=== PATIENT | male | born 1940 | race Caucasian/White ===

== ENCOUNTER 2025-04-29 13:30 | Observation (INO) ==
--- NOTE | 2025-04-29 14:12 | Emergency Department Note ---
Impression & Plan Vomiting, Pre-syncope, DM2 (diabetes mellitus, type 2) ED Provider Note NAME: FLIP MONZON AGE: 84 SEX: M : 1940 ARRIVES VIA: Ambulance INFORMANT: Patient, ED PROVIDER(S): Paul Ontiveros MD CHIEF COMPLAINT: Vomiting, possible choking episode MEDICAL DECISION MAKING: Patient presents due to concern for patient with a normal white count hemoglobin of 13.4 with a normal platelet count. The patient's kidney function unremarkable. Patient's chest x-ray does not show any acute concerning findings at this time. Multiple episodes of vomiting. IV was established and blood work was obtained along with a chest x-ray. Currently clear lung sounds and currently asymptomatic. Patient ordered IV fluids and IV Zofran. Patient's blood work shows a normal white count virtually normal hemoglobin at 13.4 with a normal platelet count. Kidney function unremarkable. Slightly elevated anion gap but did receive IV fluids. BSG 182. Patient's x-ray is unremarkable. Clear lung sounds. I did discuss the findings with the patient the patient's at bedside. They were comfortable with going home. They were set up and I did speak with case management to help with discharge transportation. Prior to the patient being discharged the patient vomited 2 or 3 times primarily clear liquid was pale and diaphoretic. I was concerned that if he returned back to his care facility he would have recurrence of symptoms and be sent back. Patient was ordered IV fluids IV Zofran and IV Pepcid and repeat EKG was obtained. Repeat EKG is unchanged from prior. Given the patient's persistent symptoms I did speak the on-call hospital service Dr. Rubio and the patient was admitted to the medicine service. Discussion w/ other healthcare providers: Dr. Rubio inpatient medicine service Prior /Outside records reviewed: None Differential diagnosis: Gastroenteritis, food borne illness, infection, appendicitis, diverticulitis, inflammatory bowel disease, obstruction among others were considered. Diagnostics, as interpreted by me: ECG: Normal sinus rhythm, rate of 62, normal intervals, left axis deviation no obvious STEMI. Repeat EKG interpreted by myself Normal sinus rhythm, rate of 73, normal CA QRS, QTc prolonged, left axis deviation. No obvious STEMI. Cardiac monitoring: An order was placed for continuous cardiac monitoring. The monitor shows a rate of 75 with sinus rhythm. Patient was placed on pulse oximetry Medical decision rules: None Imaging studies: I informally interpreted the patient's chest x-ray does not show obvious pneumothorax with formal report to follow. HPI: Patient presents due to concern for feeling generally unwell. does provide some of the story as he does have a history of dementia. Presenting from [facility]. His states that he looked at her and said "I think I am in trouble." He subsequently had multiple episodes of vomiting. No reported LOC. The patient does not remember the event but not necessarily atypical per at bedside given his dementia. He was referred here. Patient denies any current chest pain shortness of breath nausea vomiting. Patient does believe that he is essentially at his baseline. No reported falls or trauma. Was concerned via EMS staff report to nursing that the patient may have been choking on his food and aspirated. PAST MEDICAL HISTORY: See Below PAST SURGICAL HISTORY: See Below SOCIAL HISTORY: See Below HOME MEDICATIONS: See Below ALLERGIES: See Below VITALS: See Below PHYSICAL EXAMINATION: GENERAL: NAD, non-toxic. EYE EXAM: Normal conjunctiva. PERRL, no anisocoria and EOM's grossly intact w/o pain. OROPHARYNX: Moist mucus membranes, grossly normal dentition. NECK: Trachea midline, no stridor. LUNGS: Clear to auscultation. Normal chest wall mechanics. HEART: NSR, no MRG. ABDOMEN: Abdomen soft, non-tender, no masses, no rebound or guarding. BACK: No CVA TTP. SKIN: No rashes and no bruising. UPPER EXTREMITIES: Upper extremities are grossly normal. LOWER EXTREMITIES: Grossly normal, no edema. NEURO EXAM: Awake and alert, follows commands, no obvious facial asymmetry, normal speech, moves all 4 extremities. Oriented to person as well as in the room. Does not remember her birthdate. Past Med/Surg History Problem List Prolonged QT interval Pre-syncope (Acute) Vomiting (Acute) Severe cognitive impairment Depressed affect Mood changes Carpal tunnel syndrome, left Numbness of left hand Physical deconditioning Cognitive changes Hearing decreased Urinary frequency Encounter for pre-operative examination Elevated prostate specific antigen (PSA) BPH with obstruction/lower urinary tract symptoms Medical History Diabetes mellitus, type 2 Hyperlipidemia Atrial fibrillation ?? 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 Currently on Xarelto History of COVID-19 09/2021 - asymptomatic - [place] History of anesthesia reaction pt vomited while under anesthesia and aspirated. Surgical History Hx of cataract extraction lt. History of esophagogastroduodenoscopy (EGD) History of colonoscopy Hx of tonsillectomy Hx of wisdom tooth extraction Hx of inguinal hernia repair unsure side History of loop recorder d/t a. fib - in place for approx. 2 years. removed ~10 years ago. 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 Beliefs That Will Affect Care: None Current Living Situation: Spouse Feels Safe at Home: Yes Assistive Devices: Glasses Allergies Allergies Allergy/AdvReac Type Severity Reaction Status Date / Time No Known Allergies Allergy Verified 02/03/25 09:07 Home Meds Home Medications Medication Instructions Recorded Confirmed atorvastatin 40 mg tablet 40 mg PO HS 06/08/22 04/29/25 dutasteride 0.5 mg capsule 0.5 mg PO QAM 06/08/22 04/29/25 (Avodart) rivaroxaban 20 mg tablet (Xarelto) 20 mg PO QPM 06/08/22 04/29/25 fluticasone propionate 110 2 puff inhalation BID 04/29/25 04/29/25 mcg/actuation HFA aerosol inhaler metformin 1,000 mg tablet 1,000 mg PO BID 04/29/25 04/29/25 Previous Rx's Medication Instructions Recorded terazosin 10 mg capsule 10 mg PO QAM #90 caps 04/15/24 donepezil 10 mg tablet 10 mg PO DAILY #30 tabs 03/24/25 memantine 10 mg tablet 10 mg PO BID 30 days #60 tabs 03/24/25 Results & Data (ED) Vital Signs Vital Signs - 24 hr 04/29/25 13:25 04/29/25 13:25 04/29/25 13:25 Temperature 36.8 C Temperature Source Oral Pulse Rate 55 L Pulse Rate [Right Brachial] 55 L Pulse Rate from SpO2 Sensor Pulse Rhythm Regular Pulse Rhythm [Right Brachial] Regular Pulse Strength Normal Pulse Strength [Right Brachial] Normal Respiratory Rate 18 18 Respiratory Effort / Characteristics Non-Labored Non-Labored Respiratory Depth Normal Normal Respiratory Pattern Regular Regular Blood Pressure 110/57 L Blood Pressure [Right Arm] 110/57 L Blood Pressure Mean 74 Blood Pressure Mean [Right Arm] 74 Blood Pressure Position Lying Blood Pressure Position [Right Arm] Lying Pulse Oximetry 95 95 Oxygen Delivery Method Room Air Room Air Room Air Sepsis Recent Fever Within 48 Hours No Sepsis New/Unexplained Change in Mental Status N/A Sepsis Action Taken by Nursing No Action Required 04/29/25 13:45 04/29/25 14:19 04/29/25 15:15 Temperature Temperature Source Pulse Rate 65 67 Pulse Rate [Right Brachial] Pulse Rate from SpO2 Sensor 69 Pulse Rhythm Pulse Rhythm [Right Brachial] Pulse Strength Pulse Strength [Right Brachial] Respiratory Rate 15 Respiratory Effort / Characteristics Respiratory Depth Respiratory Pattern Blood Pressure 112/59 L Blood Pressure [Right Arm] Blood Pressure Mean 76 Blood Pressure Mean [Right Arm] Blood Pressure Position Blood Pressure Position [Right Arm] Pulse Oximetry 97 93 Oxygen Delivery Method Room Air Sepsis Recent Fever Within 48 Hours Sepsis New/Unexplained Change in Mental Status Sepsis Action Taken by Nursing 04/29/25 15:29 04/29/25 17:00 04/29/25 19:00 Temperature Temperature Source Pulse Rate 68 Pulse Rate [Right Brachial] 69 75 Pulse Rate from SpO2 Sensor Pulse Rhythm Pulse Rhythm [Right Brachial] Regular Regular Pulse Strength Pulse Strength [Right Brachial] Normal Normal Respiratory Rate 16 19 20 Respiratory Effort / Characteristics Non-Labored Non-Labored Respiratory Depth Normal Normal Respiratory Pattern Regular Regular Blood Pressure 117/66 Blood Pressure [Right Arm] 115/89 117/66 Blood Pressure Mean 83 Blood Pressure Mean [Right Arm] 97 83 Blood Pressure Position Blood Pressure Position [Right Arm] Lying Lying Pulse Oximetry 94 94 95 Oxygen Delivery Method Room Air Room Air Sepsis Recent Fever Within 48 Hours Sepsis New/Unexplained Change in Mental Status Sepsis Action Taken by Nursing 04/29/25 20:03 Temperature Temperature Source Pulse Rate 71 Pulse Rate [Right Brachial] Pulse Rate from SpO2 Sensor Pulse Rhythm Pulse Rhythm [Right Brachial] Pulse Strength Pulse Strength [Right Brachial] Respiratory Rate 18 Respiratory Effort / Characteristics Respiratory Depth Respiratory Pattern Blood Pressure 128/60 Blood Pressure [Right Arm] Blood Pressure Mean 82 Blood Pressure Mean [Right Arm] Blood Pressure Position Blood Pressure Position [Right Arm] Pulse Oximetry 96 Oxygen Delivery Method Sepsis Recent Fever Within 48 Hours Sepsis New/Unexplained Change in Mental Status Sepsis Action Taken by Shelter Medications Current Medication List: was personally reviewed by me Laboratory Data Attestation: I reviewed the patient's lab results. 04/29/25 13:37 04/29/25 13:37 Lab Results 04/29/25 Range/Units 13:37 WBC 5.13 (4.8-10.8) K/ul RBC 4.43 L (4.70-6.10) M/uL Hgb 13.4 L (14.0-18.0) g/dl Hct 39.9 L (42.0-52.0) % MCV 90.1 (80.0-100.0) fL MCH 30.2 (25.0-34.0) pg MCHC 33.6 (32.0-36.0) g/dL RDW Std Deviation 44.0 (36.4-46.3) fL RDW Coeff of [place] 13.2 (11.5-14.5) % Plt Count 176 (130-400) K/uL MPV 10.7 (9.4-12.4) fL Immature Gran % (Auto) 0.4 % Neut % (Auto) 63.3 % Lymph % (Auto) 24.8 % [place] % (Auto) 7.4 % Eos % (Auto) 3.3 % Baso % (Auto) 0.8 % Neut # (Auto) 3.25 (1.40-6.50) K/uL Lymph # (Auto) 1.27 (1.20-3.40) K/uL [place] # (Auto) 0.38 (0.11-0.59) K/uL Eos # (Auto) 0.17 (0.00-0.50) K/uL Baso # (Auto) 0.04 (0.00-0.20) K/uL Immature Gran # (Auto) 0.02 (0.01-0.20) K/uL Sodium 139 (136-145) mmol/L Potassium 4.0 (3.5-5.1) mmol/L Chloride 106 (98-107) mmol/L Carbon Dioxide 21 (21-32) mmol/L Anion Gap 12 H (3-11) BUN 17 (6-23) mg/dl Creatinine 1.10 (0.6-1.4) mg/dl Est Cr Clr Drug Dosing 51.8 ml/min eGFR 67.02 BUN/Creatinine Ratio 15.5 (10-20) Glucose 182 H (70-99(Fasting)) mg/dl Calcium 8.9 (8.6-10.3) mg/dl Total Bilirubin 0.8 (0.2-1.0) mg/dl AST 14 (13-39) U/L ALT 9 (7-52) U/L Alkaline Phosphatase 61 (34-104) U/L Troponin I High Sens 3.3 (0-20) pg/ml Total Protein 6.1 (6.0-8.3) gm/dl Albumin 3.8 (3.4-5.0) gm/dl Globulin 2.3 L (2.5-4.0) gm/dl Albumin/Globulin Ratio 1.7 (0.9-2) Lipase 43 (11-82) U/L Administered Medications Discontinued Medications Sodium Chloride (Nss) 500 mls @ 999 mls/hr IV .Q31M ANGUS Stop: 04/29/25 15:00 Last Infusion: 04/29/25 14:59 Dose: Infused Documented By: Admin: 04/29/25 14:28 Dose: 999 mls/hr Documented By: JOHNNY Sodium Chloride (Nss) 1,000 mls @ 999 mls/hr IV .Q1H1M ONE Stop: 04/29/25 19:46 Last Admin: 04/29/25 19:12 Dose: 999 mls/hr Documented By: JOHNNY Famotidine (Pepcid 20mg Iv Push) 20 mg in 5 mls @ 2.5 mls/min IV NOW STA Stop: 04/29/25 18:47 Last Admin: 04/29/25 19:20 Dose: 2.5 mls/min Documented By: GADIEL Ondansetron HCl (Ondansetron Inj 2 Mg/Ml 2 Ml Vial) 4 mg IV NOW STA Stop: 04/29/25 14:19 Last Admin: 04/29/25 14:28 Dose: 4 mg Documented By: JOHNNY Ondansetron HCl (Ondansetron Inj 2 Mg/Ml 2 Ml Vial) Confirm Administered Dose 4 mg .ROUTE .STK-MED ONE Stop: 04/29/25 18:48 Last Admin: 04/29/25 19:12 Dose: Not Given Documented By: JOHNNY Ondansetron HCl (Ondansetron Inj 2 Mg/Ml 2 Ml Vial) 4 mg IV NOW STA Stop: 04/29/25 18:47 Last Admin: 04/29/25 19:12 Dose: 4 mg Documented By: JOHNNY Imaging Data Radiologist's Impression: Chest X-Ray 04/29/25 14:18 XR chest 1V portable CLINICAL HISTORY: vomiting, ?aspiration COMPARISON STUDY: Chest radiograph May 01, 2024. FINDINGS: Lung volumes are normal. Lungs are clear. There is no pneumothorax or pleural effusion. Mild cardiomegaly is unchanged. Mediastinal contours are normal. There is no evidence for pulmonary edema. IMPRESSION: No acute cardiopulmonary findings. No significant change in appearance of the chest. ACT 112: Negative or not required by law. Electronically signed by: Mario Atkinson M.D. 04/29/2025 2:50 PM Discharge Plan Visit Data Chief Complaint: Shortness of Breath/Dyspnea Stated Complaint: AMS, SOB, HYPOTENSIVE ED Provider: Paul Ontiveros Discharge Problem: Vomiting, Pre-syncope, DM2 (diabetes mellitus, type 2) Patient Disposition: Admitted As Inpatient Condition: Good Discharge Instructions Interventions: ED Discharge Assessment Last Done: 04/29/25 17:54 Prescriptions Prescriptions: No Action terazosin 10 mg capsule 10 mg PO QAM Qty: 90 1RF memantine 10 mg tablet 10 mg PO BID 30 Days Qty: 60 3RF donepezil 10 mg tablet 10 mg PO DAILY Qty: 30 5RF atorvastatin 40 mg Tablet 40 mg PO HS Xarelto 20 mg Tablet 20 mg PO QPM dutasteride [Avodart] 0.5 mg capsule 0.5 mg PO QAM metformin 1,000 mg Tablet 1,000 mg PO BID fluticasone propionate [Flovent HFA] 110 mcg/actuation Hfa Aerosol Inhaler 2 puff INHALATION BID Referrals Referrals: Marley Jacqueline,Rachelle A, DO [Primary Care Provider] - Discharge Problem: Vomiting Qualifiers: Vomiting type: unspecified Nausea presence: unspecified Qualified Code(s): R 11.10 - Vomiting, unspecified DM2 (diabetes mellitus, type 2) Qualifiers: Diabetes mellitus regional intermodal truck driver insulin use: unspecified fpc insulin use status
[2025-04-29] MEDS: SODIUM CHLORIDE 0.9% 500 ML IV SCH (14:28)
[2025-04-29] MEDS: ONDANSETRON INJ 2 MG/ML 2 ML VIAL IV STA ×2 (14:28→19:12)
[2025-04-29 14:37] LABS: Hematocrit (blood only) 39.9 % (42.0-52.0); Hemoglobin 13.4 g/dl (14.0-18.0); Immature Granulocytes # (auto) 0.02 K/uL (0.01-0.20); Immature Granulocytes % (auto) 0.4 %; Mean Corpuscular Hemoglobin 30.2 pg (25.0-34.0); Mean Corpuscular Volume 90.1 fL (80.0-100.0); Platelet Count 176 K/uL (130-400); RDW Standard Deviation 44.0 fL (36.4-46.3); Red Blood Count 4.43 M/uL (4.70-6.10); White Blood Count 5.13 K/ul (4.8-10.8)
--- NOTE | 2025-04-29 14:52 | XRay Report ---
XR chest 1V portable CLINICAL HISTORY: vomiting, ?aspiration COMPARISON STUDY: Chest radiograph May 01, 2024. FINDINGS: Lung volumes are normal. Lungs are clear. There is no pneumothorax or pleural effusion. Mil d cardiomegaly is unchanged. Mediastinal contours are normal. There is no evidence for pulmonary tyler a. IMPRESSION: No acute cardiopulmonary findings. No significant change in appearance of the chest. ACT 112: Negative or not required by law. Electronically signed by: Mario Atkinson M.D. 04/29/2025 2:50 PM
[2025-04-29 15:47] LABS: Anion Gap 12.0 (3-11); Bilirubin,Total 0.8 mg/dl (0.2-1.0); Calcium 8.9 mg/dl (8.6-10.3); Carbon Dioxide 21.0 mmol/L (21-32); Chloride 106.0 mmol/L (98-107); Potassium 4.0 mmol/L (3.5-5.1); Sodium 139.0 mmol/L (136-145)
[2025-04-29 15:54] LABS: Alanine Aminotransferase 9.0 U/L (7-52); Albumin Globulin Ratio 1.7 (0.9-2); Alkaline Phosphatase 61.0 U/L (34-104); Blood Urea Nitrogen 17.0 mg/dl (6-23); Creatinine Clr Calc Pharmacy 51.8 ml/min; Globulin 2.3 gm/dl (2.5-4.0); Glucose 182.0 mg/dl (70-99(Fasting)); Lipase 43.0 U/L (11-82); Total Protein 6.1 gm/dl (6.0-8.3)
--- NOTE | 2025-04-29 18:45 | Electrocardiogram Report ---
Test Reason : Blood Pressure : */* mmHG Vent. Rate : 62 BPM Atrial Rate : 62 BPM P-R Int : 154 ms QRS Dur : 102 ms QT Int : 450 ms P-R-T Axes : 86 -63 72 degrees QTcB Int : 456 ms Normal sinus rhythm Incomplete right bundle branch block Left anterior fascicular block Possible Lateral infarct , age undetermined Abnormal ECG When compared with ECG of 01-May-2024 11:22, Left anterior fascicular block is now Present Incomplete right bundle branch block is now Present Borderline criteria for Lateral infarct are now Present Confirmed by Jorge Browning ([id number]) on 04/29/2025 6:44:52 PM Referred By: [facility] Confirmed By: Jorge Browning
[2025-04-29] MEDS: SODIUM CHLORIDE 0.9% 1,000 ML IV ONE (19:12)
[2025-04-29] MEDS: ONDANSETRON INJ 2 MG/ML 2 ML VIAL ONE (19:12)
[2025-04-29] MEDS: FAMOTIDINE 20MG IV PUSH 20 MG/5 ML SYR IV STA (19:20)
--- NOTE | 2025-04-29 19:41 | History & Physical Report ---
Date of Service April 29, 2025 Assessment & Plan (1) Pre-syncope: (2) Vomiting: (3) Prolonged QT interval: (4) Diabetes mellitus, type 2: Plan 85-year-old male PMHx, impairment, BPH, asthmatic bronchitis, HLD, and T2DM presenting for reported choking episode as well as dizziness on the day of arrival. Per EMS, patient was hypotensive on arrival (88/50). ED evaluation reveals CBC without leukocytosis, H&H 13.4/39.9; CMP anion gap 12, glucose 182; troponin 3.3, globulin 2.3; lipase 43; CXR without acute findings; EKG (1) NSR, incomplete RBBB, LAFB at 62 bpm.; EKG (2) sinus arrhythmia, LAFB, abnormal QRS/T, prolonged QT at 70 bpm.; 1.5 mL NSS, Zofran 4 mg IV x 3, and famotidine 20 mg IV in ED. #Presyncope/Vomiting Episode of vomiting x 5-[address], then with ? aspiration event. Was to be sent home from ED but when up to bathroom, had another episode of vomiting and presyncope. Suspect volume depletion resulting in symptoms. - CBC without leukocytosis, H/H 13.4/39.9; CMP without electrolyte abnormalities - CBC, BMP am - CXR WNL - EKG x 2 with NSR, 2nd EKG does reveal prolonged QT/QTc (438/482) - Clear liquid diet, advance as patient tolerates - Aspiration + fall precautions - Reglan prn N/V - IVF LR @ 80 mL/hr - Abx deferred at time of admission - No F/C, no leukocytosis, no abdominal pain #Prolonged QT on EKG No palpitations, no additional symptoms. - Avoid prolonging agents as possible - Reglan for N/V - Monitor on tele #T2DM H/o DMT2; On metformin at home. - Admitting glucose 182; A1c pending for am - Hold po meds - SSI with target BSG range 110-140mg/dL, CF 30, carb ratio deferred - BSG ACHS - Adjust regimen as needed #HLD- Atorvastatin - continue #Cognitive impairment/dementia- Donepezil, memantine - continue #Afib- EKG NSR x 2; Xeralto - continue #BPH- Dutasteride, terazosin - continue Dispo: Obs, med/tele VTE Prophylaxis: Xeralto This document was dictated utilizing [employer]. Please excuse any grammatical errors that may be secondary to use of this software. Admission and Anticipated Discharge Date Admission Date: 04/29/2025 History of Present Illness Chief Complaint: Dizziness, N/V Primary Care Provider: Rachelle Phillips DO 85-year-old male PMHx, impairment, BPH, asthmatic bronchitis, HLD, and T2DM presenting for reported choking episode as well as dizziness on the day of arrival. Per EMS, patient was hypotensive on arrival (88/50). Patient and his helped to provide a history. States that on the day of arrival he was eating "very well" across from his at the dinner table in the main dining room at the place of residence. And then he said suddenly he was not eating well anymore and he was on the floor. His states that she witnessed the entire event. States that he started to have some coughing at the dinner table and then stated "I think I am in trouble." At that time he fell to the ground from his seat and started to throw up around 6-7 times. He denies any feelings prior to this event and does not remember stating that he is in trouble. He did not have any presyncope, dizziness, lightheadedness, palpitations, or abdominal pain. He states that he feels back to his normal health this time. Patient was to be discharged home, but when he got up to use the bathroom and got off of the toilet, his found him on the ground in his hospital room. He felt lightheaded at that time, but reports no LOC during either episode that occurred on the day of arrival. Patient does not feel feverish, but states that he feels that his body may be shaking. He did receive multiple doses of Zofran. He denies chest pain, SOB, palpitations, abdominal pain, diarrhea/constipation, numbness/tingling, LUTS, URI symptoms, weakness, or recurrent dizziness. He has not had this happen before. He takes medications as prescribed. Patient's mood changes throughout the visit, states that he will remember my name because his "favorite granddaughter's name is Vickie." Patient states that his mood is overall stable. ED evaluation reveals CBC without leukocytosis, H&H 13.4/39.9; CMP anion gap 12, glucose 182; troponin 3.3, globulin 2.3; lipase 43; CXR without acute findings; EKG (1) NSR, incomplete RBBB, LAFB at 62 bpm.; EKG (2) sinus arrhythmia, LAFB, abnormal QRS/T, prolonged QT at 70 bpm.; 1.5 mL NSS, Zofran 4 mg IV x 3, and famotidine 20 mg IV in ED. Please see Dr. Rubio's attestation for adjustments/additions to treatment plan. Allergies Allergy/AdvReac Type Severity Reaction Status Date / Time No Known Allergies Allergy Verified 02/03/25 09:07 Home Medications Medication Instructions Recorded Confirmed Type atorvastatin 40 mg tablet 40 mg PO HS 06/08/22 04/29/25 History dutasteride 0.5 mg capsule 0.5 mg PO QAM 06/08/22 04/29/25 History (Avodart) rivaroxaban 20 mg tablet (Xarelto) 20 mg PO QPM 06/08/22 04/29/25 History terazosin 10 mg capsule 10 mg PO QAM #90 caps 04/15/24 04/29/25 Rx donepezil 10 mg tablet 10 mg PO DAILY #30 tabs 03/24/25 04/29/25 Rx memantine 10 mg tablet 10 mg PO BID 30 days #60 tabs 03/24/25 04/29/25 Rx fluticasone propionate 110 2 puff inhalation BID 04/29/25 04/29/25 History mcg/actuation HFA aerosol inhaler metformin 1,000 mg tablet 1,000 mg PO BID 04/29/25 04/29/25 History Past Med/Surg History Problem List Prolonged QT interval Pre-syncope (Acute) Vomiting (Acute) Severe cognitive impairment Depressed affect Mood changes Carpal tunnel syndrome, left Numbness of left hand Physical deconditioning Cognitive changes Hearing decreased Urinary frequency Encounter for pre-operative examination Elevated prostate specific antigen (PSA) BPH with obstruction/lower urinary tract symptoms Medical History Diabetes mellitus, type 2 Hyperlipidemia Atrial fibrillation ?? unsure - pt does not follow head packager. Currently on Xarelto History of COVID-19 09/2021 - asymptomatic - [facility] History of anesthesia reaction pt vomited while under anesthesia and aspirated. Surgical History Hx of cataract extraction lt. History of esophagogastroduodenoscopy (EGD) History of colonoscopy Hx of tonsillectomy Hx of wisdom tooth extraction Hx of inguinal hernia repair unsure side History of loop recorder d/t a. fib - in place for approx. 2 years. removed ~10 years ago. Does not follow head packager History of bilateral knee arthroplasty Family History Mother Diabetes Father Diabetes Social History Smoking Status: Former smoker Cigarettes Per Day: 1 pk/day; Second Hand Exposure: No; Do You Dip or Chew Tobacco: No; Hx Alcohol Use: Yes Alcohol type: wine and hard liquor Hx Substance Use: No Preferred Language: Italian Communication Ability: Effective Javascript Developer Required: No Beliefs That Will Affect Care: None Current Living Situation: Spouse Feels Safe at Home: Yes Assistive Devices: Glasses Review of Systems Review of Systems: All systems reviewed & are unremarkable except as noted in Subjective Physical Exam Physical Exam: General: No acute distress Skin: Warm and dry Head: Normocephalic, atraumatic Eyes: PERRL, conjunctivae clear, sclera non-icteric ENT: External ear and ear canal without swelling; nose atraumatic; good dentition, tongue normal appearance, pharynx normal Neck: Supple, no LAD Cardio: RRR, no M/G/R, S1 and S2 normal Resp: No respiratory distress, Lungs CTA in all lobes bilaterally, no wheezes, rales, or rhonchi Abdomen: Soft, symmetric, nontender; No masses or hepatosplenomegaly; Bowel sounds normoactive MSK: No deformities; pulses palpable and equal; no edema. Neuro: Awake, alert; Sensation intact bilaterally; CN grossly intact Psych: Appropriate mood and affect; good judgement and insight. present in room at time of visit. Results & Data Results & Data Vital Signs (Past 12 Hours) Vital Signs Temp Pulse Pulse Resp BP BP Pulse Ox 04/29/25 19:00 68 20 117/66 95 04/29/25 17:00 75 19 117/66 94 04/29/25 15:29 69 16 115/89 94 04/29/25 15:15 67 15 112/59 L 93 04/29/25 14:19 97 04/29/25 13:45 65 04/29/25 13:25 55 L 18 110/57 L 95 04/29/25 13:25 04/29/25 13:25 36.8 C 55 L 18 110/57 L 95 O2 Del Method 04/29/25 19:00 04/29/25 17:00 Room Air 04/29/25 15:29 Room Air 04/29/25 15:15 04/29/25 14:19 Room Air 04/29/25 13:45 04/29/25 13:25 Room Air 04/29/25 13:25 Room Air 04/29/25 13:25 Room Air Laboratory Results 04/29/25 13:37 WBC 5.13 RBC 4.43 L Hgb 13.4 L Hct 39.9 L MCV 90.1 MCH 30.2 MCHC 33.6 RDW Std Deviation 44.0 RDW Coeff of Rosendo 13.2 Plt Count 176 MPV 10.7 Immature Gran % (Auto) 0.4 Neut % (Auto) 63.3 Lymph % (Auto) 24.8 Dukes % (Auto) 7.4 Eos % (Auto) 3.3 Baso % (Auto) 0.8 Neut # (Auto) 3.25 Lymph # (Auto) 1.27 Dukes # (Auto) 0.38 Eos # (Auto) 0.17 Baso # (Auto) 0.04 Immature Gran # (Auto) 0.02 Sodium 139 Potassium 4.0 Chloride 106 Carbon Dioxide 21 Anion Gap 12 H BUN 17 Creatinine 1.10 Est Cr Clr Drug Dosing 51.8 eGFR 67.02 BUN/Creatinine Ratio 15.5 Glucose 182 H Calcium 8.9 Total Bilirubin 0.8 AST 14 ALT 9 Alkaline Phosphatase 61 Troponin I High Sens 3.3 Total Protein 6.1 Albumin 3.8 Globulin 2.3 L Albumin/Globulin Ratio 1.7 Lipase 43 Diagnostic Findings Chest X-Ray 04/29/25 14:18 XR chest 1V portable CLINICAL HISTORY: vomiting, ?aspiration COMPARISON STUDY: Chest radiograph May 01, 2024. FINDINGS: Lung volumes are normal. Lungs are clear. There is no pneumothorax or pleural effusion. Mild cardiomegaly is unchanged. Mediastinal contours are normal. There is no evidence for pulmonary edema. IMPRESSION: No acute cardiopulmonary findings. No significant change in appearance of the chest. ACT 112: Negative or not required by law. Electronically signed by: Mario Atkinson M.D. 04/29/2025 2:50 PM Medications Administered 1.5 mL NSS Zofran 4 mg IV x 3 Famotidine 20 mg IV x 1 ECG Additional Comments: EKG #1: NSR, incomplete RBBB, LAFB 62 bpm, MD 154, QRS 102, QT/QTc 450/456, PRT 86/-63/72 EKG #2: NSR with sinus arrhythmia, LAFB, abnormal QRS/T 80 QT 73 bpm, MD 150, QRS 102, QT/QTc 438/482, PRT 75/-55/92 Supervising Physician Co-Signing Physician Notes Patient seen and examined, chart reviewed, case discussed with DONA Garcia and I agree with the assessment and plan as above PG Care Time/CCT Total # of Minutes Spent Total Time Spent with Patient: Total time spent is greater than 50% in coordination of care (as documented) at patient's floor/unit and/or counseling patient: Coding Level of Care Code 21220 INT INP/OBS CARE 75MIN Diagnoses Pre-syncope R55 Vomiting R11.10 Prolonged QT interval R94.31 Diabetes mellitus, type 2 E11.9
[2025-04-29] MEDS ORDERED: METOCLOPRAMIDE HCL INJ 5 MG/ML 2 ML VIAL IV PRN (20:05)
[2025-04-29] MEDS: LACTATED RINGER'S 1,000 ML IV SCH (20:26)
[2025-04-29] MEDS ORDERED: GLUCOSE 10 TAB/TUBE PO PRN (21:38)
[2025-04-29] MEDS ORDERED: GLUCAGON FOR INJ 1 MG VIAL SQ PRN (21:38)
[2025-04-29] MEDS ORDERED: MELATONIN 3 MG TAB PO PRN (21:38)
[2025-04-29] MEDS ORDERED: CARBOHYDRATES FOR HYPOGLYCEMIA PO PRN (21:38)
[2025-04-29] MEDS ORDERED: POLYETHYLENE (MIRALAX) 17 GM PACK PO PRN (21:38)
[2025-04-29] MEDS ORDERED: ACETAMINOPHEN 325 MG TAB PO PRN (21:38)
[2025-04-29] MEDS ORDERED: GLUCOSE 40% GEL 15 GM TUBE PO PRN (21:38)
[2025-04-29] MEDS ORDERED: DEXTROSE 50% 50 ML SYRINGE IV PRN (21:38)
[2025-04-29] MEDS: FLUTICASONE FUROATE 200MCG 14 PUFFS/INHALER INH SCH (22:03)
[2025-04-29] MEDS: ATORVASTATIN 40 MG TAB PO SCH (22:05)
[2025-04-29] MEDS: INSULIN ASPART PER UNIT CHARGE SC SCH (22:06)
[2025-04-29] MEDS: MEMANTINE HCL 10 MG TAB PO SCH (22:06)
[2025-04-29] MEDS: RIVAROXABAN 20 MG TAB PO SCH (22:07)
[2025-04-30 05:58] LABS: Hematocrit (blood only) 35.6 % (42.0-52.0); Hemoglobin 12.1 g/dl (14.0-18.0); Mean Corpuscular Hemoglobin 30.4 pg (25.0-34.0); Mean Corpuscular Volume 89.4 fL (80.0-100.0); Platelet Count 168 K/uL (130-400); RDW Standard Deviation 43.1 fL (36.4-46.3); Red Blood Count 3.98 M/uL (4.70-6.10); White Blood Count 7.56 K/ul (4.8-10.8)
[2025-04-30 06:14] LABS: Anion Gap 5.0 (3-11); Blood Urea Nitrogen 14.0 mg/dl (6-23); Calcium 8.5 mg/dl (8.6-10.3); Carbon Dioxide 27.0 mmol/L (21-32); Chloride 107.0 mmol/L (98-107); Creatinine Clr Calc Pharmacy 58.7 ml/min; Glucose 130.0 mg/dl (70-99(Fasting)); Potassium 3.9 mmol/L (3.5-5.1); Sodium 139.0 mmol/L (136-145)
[2025-04-30 07:19] LABS: Hemoglobin A1C 6.2 % (4.5-5.6)
[2025-04-30] MEDS: TERAZOSIN HCL 5 MG CAP PO SCH (08:23)
[2025-04-30] MEDS: DONEPEZIL HCL 10 MG TAB PO SCH (08:24)
[2025-04-30] MEDS: FINASTERIDE 5 MG TAB PO SCH (08:24)
[2025-04-30 08:37] VITALS: RESP 18; TEMP 98.1
--- NOTE | 2025-04-30 08:47 | Electrocardiogram Report ---
Test Reason : Blood Pressure : */* mmHG Vent. Rate : 73 BPM Atrial Rate : 73 BPM P-R Int : 150 ms QRS Dur : 102 ms QT Int : 438 ms P-R-T Axes : 75 -55 92 degrees QTcB Int : 482 ms Normal sinus rhythm with sinus arrhythmia Premature ventricular complexes Left anterior fascicular block Prolonged QT Abnormal ECG When compared with ECG of 29-Apr-2025 14:11, Incomplete right bundle branch block is no longer Present Borderline criteria for Lateral infarct are no longer Present Confirmed by Jorge Browning ([id number]) on 04/30/2025 8:46:58 AM Referred By: [facility] Confirmed By: Jorge Browning
[2025-04-30 10:34] VITALS: BP 121/56; PULSE 77; O2SAT 93
--- NOTE | 2025-04-30 10:39 | Discharge Summary ---
Date of Service April 30, 2025 Admission HPI Per Admitting Provider 85-year-old male PMHx, impairment, BPH, asthmatic bronchitis, HLD, and T2DM presenting for reported choking episode as well as dizziness on the day of arrival. Per EMS, patient was hypotensive on arrival (88/50). Patient and his helped to provide a history. States that on the day of arrival he was eating "very well" across from his at the dinner table in the main dining room at the place of residence. And then he said suddenly he was not eating well anymore and he was on the floor. His states that she witnessed the entire event. States that he started to have some coughing at the dinner table and then stated "I think I am in trouble." At that time he fell to the ground from his seat and started to throw up around 6-7 times. He denies any feelings prior to this event and does not remember stating that he is in trouble. He did not have any presyncope, dizziness, lightheadedness, palpitations, or abdominal pain. He states that he feels back to his normal health this time. Patient was to be discharged home, but when he got up to use the bathroom and got off of the toilet, his found him on the ground in his hospital room. He felt lightheaded at that time, but reports no LOC during either episode that occurred on the day of arrival. Patient does not feel feverish, but states that he feels that his body may be shaking. He did receive multiple doses of Zofran. He denies chest pain, SOB, palpitations, abdominal pain, diarrhea/constipation, numbness/tingling, LUTS, URI symptoms, weakness, or recurrent dizziness. He has not had this happen before. He takes medications as prescribed. Patient's mood changes throughout the visit, states that he will remember my name because his "favorite granddaughter's name is Vickie." Patient states that his mood is overall stable. ED evaluation reveals CBC without leukocytosis, H&H 13.4/39.9; CMP anion gap 12, glucose 182; troponin 3.3, globulin 2.3; lipase 43; CXR without acute findings; EKG (1) NSR, incomplete RBBB, LAFB at 62 bpm.; EKG (2) sinus arrhythmia, LAFB, abnormal QRS/T, prolonged QT at 70 bpm.; 1.5 mL NSS, Zofran 4 mg IV x 3, and famotidine 20 mg IV in ED. Please see Dr. Rubio's attestation for adjustments/additions to treatment plan. Specialty Data Hospitalist Discharge diagnosis: Presyncope d/t vomiting Prolonged QT Discharge assessment: Vital Signs Temp Pulse Pulse Resp BP BP Pulse Ox 04/30/25 10:33 36.7 C 77 18 121/56 L 93 04/30/25 08:00 36.7 C 72 18 137/56 L 95 04/30/25 02:55 36.8 C 73 22 148/53 H 95 04/30/25 00:00 69 04/29/25 21:39 36.5 C 72 20 138/63 97 04/29/25 21:38 04/29/25 21:15 73 18 115/68 96 04/29/25 20:03 71 18 128/60 96 04/29/25 19:00 68 20 117/66 95 04/29/25 17:00 75 19 117/66 94 04/29/25 15:29 69 16 115/89 94 04/29/25 15:15 67 15 112/59 L 93 04/29/25 14:19 97 04/29/25 13:45 65 04/29/25 13:25 55 L 18 110/57 L 95 04/29/25 13:25 04/29/25 13:25 36.8 C 55 L 18 110/57 L 95 GENERAL: 84 yo elderly WM. Awake, alert but only oriented x1. No distress. LUNGS: Clear to auscultation bilaterally. No accessory muscle use. No W/R/R. CARDIOVASCULAR: Regular rate and rhythm. EXTREMITIES: No edema. Non-tender. Peripheral pulses +2/4. NEUROLOGIC: No focal neurological deficits. CN II-XII grossly intact. PSYCHIATRIC: Cooperative. Appropriate mood and affect. SKIN: Warm, dry, intact. No rashes or lesions. Discharge Data Consultations 04/29/25 18:46 ED Decision to Admit Stat Procedures Performed Chest X-Ray 04/29/25 14:18 XR chest 1V portable CLINICAL HISTORY: vomiting, ?aspiration COMPARISON STUDY: Chest radiograph May 01, 2024. FINDINGS: Lung volumes are normal. Lungs are clear. There is no pneumothorax or pleural effusion. Mild cardiomegaly is unchanged. Mediastinal contours are normal. There is no evidence for pulmonary edema. IMPRESSION: No acute cardiopulmonary findings. No significant change in appearance of the chest. ACT 112: Negative or not required by law. Electronically signed by: Mario Atkinson M.D. 04/29/2025 2:50 PM Hospital Course (1) Pre-syncope: (2) Vomiting: (3) Prolonged QT interval: (4) Diabetes mellitus, type 2: Plan 85-year-old male PMHx, impairment, BPH, asthmatic bronchitis, HLD, and T2DM presenting for reported choking episode as well as dizziness on the day of arrival. Per EMS, patient was hypotensive on arrival (88/50). ED evaluation reveals CBC without leukocytosis, H&H 13.4/39.9; CMP anion gap 12, glucose 182; troponin 3.3, globulin 2.3; lipase 43; CXR without acute findings; EKG (1) NSR, incomplete RBBB, LAFB at 62 bpm.; EKG (2) sinus arrhythmia, LAFB, abnormal QRS/T, prolonged QT at 70 bpm.; 1.5 mL NSS, Zofran 4 mg IV x 3, and famotidine 20 mg IV in ED. #Presyncope/Vomiting Episode of vomiting x 5-[address] of [address], then with ? aspiration ev ent. Was to be sent home from ED but when up to bathroom, had another episode of vomiting and presyncope. Suspect volume depletion resulting in symptoms. - CBC without leukocytosis, H/H 13.4/39.9; CMP without electrolyte abnormalities - CBC, BMP am - CXR WNL - EKG x 2 with NSR, 2nd EKG does reveal prolonged QT/QTc (438/482) - Clear liquid diet, advanced to regular consistency but carb consistent for lunch on 04/30 - tolerated - Aspiration + fall precautions - Reglan prn N/V - IVF LR @ 80 mL/hr - Abx deferred at time of admission - No F/C, no leukocytosis, no abdominal pain - Orthostatic VS negative #Prolonged QT on EKG No palpitations, no additional symptoms. - Avoid prolonging agents as possible - Reglan for N/V - Monitor on tele #T2DM H/o DMT2; On metformin at home. - Admitting glucose 182; A1c pending for am - Hold po meds - SSI with target BSG range 110-140mg/dL, CF 30, carb ratio deferred - BSG ACHS - Adjust regimen as needed #HLD- Atorvastatin - continue #Cognitive impairment/dementia- Donepezil, memantine - continue #Afib- EKG NSR x 2; Xeralto - continue #BPH- Dutasteride, terazosin - continue Patient is medically and hemodynamically stable for discharge home today with his . Contacted but went to . Called son Shaw and he noted he will try to contact his mother. Plan for f/u with PCP within 1 week or sooner if needed. Above plan of care d/w Dr. Sloan who is in agreement with aforementioned. Total time for discharge: <30 minutes Supervising Physician Co-Signing Physician Notes The patient was not seen by me. The chart was reviewed. Case discussed with OLYA Forrester. Agree with assessment and plan Coding Level of Care Code 34376 IN/OBS DISCH 30 MIN/LESS Diagnoses Pre-syncope R55 Vomiting R11.10 Prolonged QT interval R94.31 Diabetes mellitus, type 2 E11.9
== END 2025-04-30 12:15 | disposition home or self-care (01) ==
LOC: ED 13:30 → 2E 13:30 → SUATTDRO 20:02 → 2E 21:16